=== PATIENT | female | born 1970 | race Caucasian/White ===

== ENCOUNTER → 2018-06-12 | Outpatient (CLI) | payer BC ==
[~2018-06-12] MED LIST: AZIT-9 PO; KET10 PO; LOR75 PO; NAP550 PO; NONE CURRENTLY; PER PO
--- NOTE | 2018-06-13 10:15 | RADIOLOGY IMAGING REPORT ---
FACILITY: [facility] [place] PATIENT NAME: SOFÍA QUEVEDO : [id number] MR: [id number] V: [id number] EXAM DATE: [id number] ORDERING PHYSICIAN: JOSE ANTONIO DOWNS TECHNOLOGIST: Krystina Barton PROCEDURE:BILATERAL DIGITAL SCREENING MAMMOGRAM WITH CAD ASSISTED INTERPRETATION & 3D TOMOSYNTHESIS COMPARISON:Prior mammograms dated 12/21/16 INDICATIONS:SCREENING IMPLANTS FINDINGS: There are bilateral subpectoral breast implants in place. There is no evidence of implant rupture or leakage. Scattered fibroglandular densities are seen in both breasts. The parenchymal pattern has remained stable allowing for difference in mammographic technique & patient positioning. DIAGNOSTIC CATEGORY 2--BENIGN FINDING. RECOMMENDATIONS: ROUTINE MAMMOGRAM AND CLINICAL EVALUATION. IMPRESSION: BIRADS 2: Benign finding. No significant abnormality is seen. Dictated by: Olga Frias M.D. on 06/12/2018 at 17:16 Transcribed by: SHANNAN on 06/13/2018 at 10:10 Approved by: Olga Frias M.D. on 06/13/2018 at 10:14 [facility]
== END ==
LOC: MAMO 00:48
PROVIDERS: ATTEND Nurse Practitioner Family
DX: Z12.31 Encounter for screening mammogram for malignant neoplasm of breast (principal)
CPT/HCPCS: 77063; 77067